=== PATIENT | female | born 1995 | race Caucasian/White ===

== ENCOUNTER 2025-01-05 20:00 | Emergency (ER) | payer BC ==
[2025-01-05 20:19] VITALS: RESP 18
--- NOTE | 2025-01-05 20:43 | ED ---
Extremity Problem HPI - General Chief complaint: Extremity Problem,Nontraumatic Stated complaint: leg pain Time Seen by Provider: 01/05/25 20:39 Source: patient, RN notes reviewed Mode of arrival: ambulatory Limitations: no limitations - History of Present Illness Initial comments: 29-year-old female presenting for right popliteal pain x 2 months. States the pain began after a trip and fall over a spare tire. States she saw her primary care doctor who performed an x-ray and told her it was negative, however patient did undergo a course of physical therapy with no relief of the pain. States the pain is worsening in quality and is constant. It is located in the popliteal space of the right knee and sometimes radiates to the upper and lower leg in a sitting position. Denies pain with weightbearing or range of motion. Denies redness, swelling, or drainage. She is a non-smoker. Denies history of surgery or travel in the past 3 months. Denies history of blood clots. - Related Data Allergies Allergy/AdvReac Type Severity Reaction Status Date / Time No Known Allergies Allergy Verified 01/05/25 20:19 Review of Systems ROS Statement: Those systems with pertinent positive or pertinent negative responses have been documented in the HPI. ROS Other: All systems not noted in ROS Statement are negative. Past Medical History Past Medical History: GERD/Reflux History of Any Multi-Drug Resistant Organisms: None Reported Past Surgical History: No Surgical Hx Reported Past Psychological History: No Psychological Hx Reported Smoking Status: Never smoker Past Alcohol Use History: None Reported Past Drug Use History: None Reported General Exam Limitations: no limitations General appearance: alert, in no apparent distress Head exam: Present: atraumatic, normocephalic, normal inspection Eye exam: Present: normal appearance, PERRL, EOMI. Absent: scleral icterus, conjunctival injection, periorbital swelling Right Upper Leg exam: Present: normal inspection, full ROM. Absent: tenderness, swelling Knee exam: Present: normal inspection, full ROM (No pain with range of motion), tenderness (There is popliteal tenderness, no anterior tenderness). Absent: swelling, abrasion, laceration, erythema, posterior draw sign, pain/laxity with valgus, pain/laxity with varus Lower Leg exam: Present: normal inspection, full ROM. Absent: tenderness, swelling Ankle exam: Present: normal inspection, full ROM. Absent: tenderness, swelling Foot/Toe exam: Present: normal inspection, full ROM. Absent: tenderness, swelling Neurovascular tendon exam: Present: no vascular compromise. Absent: pulse deficit, abnormal cap refill, motor deficit Neurological exam: Present: alert, oriented X3 Psychiatric exam: Present: normal affect, normal mood Skin exam: Present: warm, dry, intact, normal color. Absent: rash Course Vital Signs 01/05/25 20:14 Temperature 97.9 F Pulse Rate 88 Respiratory 18 Rate Blood Pressure 132/70 O2 Sat by Pulse 97 Oximetry Medical Decision Making - Medical Decision Making Was pt. sent in by a medical professional or institution (, PA, SHELL[employer]ESSING [employer]ORER, urgent care, hospital, or senior living...) When possible be specific @ -No Did you speak to anyone other than the patient for history (EMS, parent, family, police, friend...)? What history was obtained from this source @ -No Did you review nursing and triage notes (agree or disagree)? Why? @ -I reviewed and agree with nursing and triage notes Were old charts reviewed (outside hosp., previous admission, EMS record, old EKG, old radiological studies, urgent care reports/EKG's, senior living records)? Report findings @ -No old charts were reviewed Differential Diagnosis (chest pain, altered mental status, abdominal pain women, abdominal pain men, vaginal bleeding, weakness, fever, dyspnea, syncope, hea dache, dizziness, GI bleed, back pain, seizure, CVA, palpatations, mental health, musculoskeletal)? @ -Differential Musculoskeletal Muscular strain, contusion, ligament sprain, fracture, arthritis, septic arthritis, bursitis, cellulitis, muscle spasm, nerve compression, DVT, arterial occlusion, herpes zoster, electrolyte abnormality, tumor.... This is not meant to be in all inclusive list EKG interpreted by me (3pts min.). @ -None X-rays interpreted by me (1pt min.). @ -X-ray right knee reveals no acute process CT interpreted by me (1pt min.). @ -None done U/S interpreted by me (1pt. min.). @ -Ultrasound right lower extremity negative for DVT What testing was considered but not performed or refused? (CT, X-rays, U/S, labs)? Why? @ -None What meds were considered but not given or refused? Why? @ -None Did you discuss the management of the patient with other professionals (professionals i.e. Dr., PA, SHELL[employer]ESSING LABORER, lab, RT, psych nurse, secondary social studies teacher, tap grinder, teacher, vice squad police officer, mattress spring encaser)? Give summary @ -No Was smoking cessation discussed for >3mins.? @ -No Was critical care preformed (if so, how long)? @ -No Were there social determinants of health that impacted care today? How? (Ho melessness, low income, unemployed, alcoholism, drug addiction, transportation, low edu. Level, literacy, decrease access to med. care, fpc, rehab)? @ -No Was there de-escalation of care discussed even if they declined (Discuss DNR or withdrawal of care, Hospice)? DNR status @ -No What co-morbidities impacted this encounter? (DM, HTN, Smoking, COPD, CAD, Cancer, CVA, ARF, Chemo, Hep., AIDS, mental health diagnosis, sleep apnea, morbid obesity)? @ -None Was patient admitted / discharged? Hospital course, mention meds given and route, prescriptions, significant lab abnormalities, going to OR and other pertinent info. @ -Discharge. 29-year-old female presenting for right popliteal pain x 2 months. Neurovascularly intact. Patient is able to weight-bear with no pain. No pain with range of motion. No sign of bacterial infection. Provided with Toradol for supportive care. X-ray right knee reveals no acute process. Ultrasound right lower extremity negative for DVT. Discussed negative results with patient. Appropriate return precautions and follow-up care discussed. Patient is agreeable to plan. Case was discussed with my ED attending Dr. Reyez. Undiagnosed new problem with uncertain prognosis? @ -No Drug Therapy requiring intensive monitoring for toxicity (Heparin, Nitro, Insulin, Cardizem)? @ -No Were any procedures done? @ -No Diagnosis/symptom? @ -Right knee pain Acute, or Chronic, or Acute on Chronic? @ -Acute Uncomplicated (without systemic symptoms) or Complicated (systemic symptoms)? @ -Uncomplicated Side effects of treatment? @ -No Exacerbation, Progression, or Severe Exacerbation? @ -No Poses a threat to life or bodily function? How? (Chest pain, [place], [place], pneumonia, PE, COPD, DKA, ARF, appy, cholecystitis, CVA, Diverticulitis, Homicidal, Suicidal, threat to staff... and all critical care pts) @ -No Disposition Clinical Impression: Right knee pain Disposition: HOME SELF-CARE Condition: Stable Instructions (If sedation given, give patient instructions): Knee Pain (ED) Additional Instructions: Follow-up with your PCP. You may need further imaging such as an MRI. Please return to the Emergency Department if symptoms worsen or any other concerns. Is patient prescribed a controlled substance at d/c from ED?: No Referrals: Melba Quesada DO [Primary Care Provider] - 1-2 days Time of Disposition: 22:36
[2025-01-05] MEDS: KETOROLAC 15 MG/ML 1 ML VIAL IM STA (20:51)
--- NOTE | 2025-01-05 21:07 | XR ---
EXAMINATION TYPE: XR knee complete RT DATE OF EXAM: 01/05/2025 9:02 PM COMPARISON: None. CLINICAL INDICATION: Female, 29 years old with history of right knee pain; PHH, pain TECHNIQUE: XR knee complete RT views submitted.. FINDINGS: No evidence of any acute osseous pathology, soft tissue swelling, or joint effusion is no chino. IMPRESSION: 1. No acute osseous pathology. [facility], , 01/05/2025 9:04 PM
--- NOTE | 2025-01-05 22:03 | US ---
EXAMINATION TYPE: US venous doppler duplex LE RT DATE OF EXAM: 01/05/2025 9:49 PM COMPARISON: NONE CLINICAL INDICATION: Female, 29 years old with history of pain; Right leg pain, Pain TECHNIQUE: The lower extremity deep venous system is examined utilizing real time linear array sonog ruben with graded compression, color doppler sonography, and spectral doppler. SIDE PERFORMED: Right FINDINGS: VESSELS IMAGED: Common Femoral Vein Deep Femoral Vein Greater Saphenous Vein * Femoral Vein Popliteal Vein Small Saphenous Vein * Proximal Calf Veins (* superficial vessels) Right Leg: Negative for DVT, Color Doppler imaging shows patency of the vessels. Spectral waveforms are within normal limits. IMPRESSION: No ultrasound evidence for deep venous thrombosis. [facility], , 01/05/2025 10:01 PM
[2025-01-05 22:45] VITALS: BP 112/76; PULSE 82; TEMP 98
== END 2025-01-05 22:45 | disposition home or self-care (01) ==
LOC: EC 20:00
DX: M25.561 Pain in right knee (principal); W01.0XXA Fall on same level from slipping, tripping and stumbling without subsequent striking against object, initial encounter
CPT/HCPCS: 73562; 93971; 99284; 96372; J1885

== ENCOUNTER → 2025-03-08 | Outpatient (CLI) | payer BC ==
--- NOTE | 2025-03-09 13:59 | MR ---
MR knee RT wo con DATE OF EXAM: 03/08/2025 5:20 PM COMPARISON: Right knee radiographs 01/05/2025. CLINICAL INDICATION: Female, 29 years old with history of M25.561 PAIN IN RIGHT KNEE; PHH, RT knee pa in behind the knee Tripped and fell a couple months ago TECHNIQUE: Noncontrast multiplanar, multiecho imaging of the right knee was performed, including T1-w eighted and fluid sensitive sequences. FINDINGS: Medial meniscus: Intact. Lateral meniscus: Discoid morphology. Intact. ACL: Intact. PCL: Intact. MCL: Intact. Lateral ligaments and tendons: Intact. Extensor mechanism: The quadriceps and patellar tendons are intact. Fat pads: Preserved. Articular cartilage: Patellofemoral compartment: No high-grade chondral defect. Medial compartment: No high-grade chondral defect. Lateral compartment: No high-grade chondral defect. Bone marrow: No acute fracture. No suspicious osseous lesion or marrow replacing process. Muscles: No muscle atrophy or acute muscle injury. Other soft tissues: Trace joint effusion. IMPRESSION: No internal derangement on MRI of the knee. Discoid lateral meniscus. [facility], , 03/09/2025 1:57 PM
== END | disposition home or self-care (01) ==
LOC: RADMRIMAIN 16:22
PROVIDERS: ATTEND Family Medicine
DX: M23.300 Other meniscus derangements, unspecified lateral meniscus, right knee (principal); W01.0XXA Fall on same level from slipping, tripping and stumbling without subsequent striking against object, initial encounter